=== PATIENT | female | born 1940 | race Caucasian/White ===

== ENCOUNTER 2016-10-25 18:08 | Inpatient (IN) | payer MEDICARE ==
[~2016-10-25] VITALS: Ht 172.7 cm; Wt 57.3 kg
[~2016-10-25 18:08] MED LIST: ABILIFY10 MG PO; ALENDRONATE SOD70 MG PO; ALOPHEN PILLS5 MG PO; BUSPAR10 MG PO; CALCIUM 600+D T1 TA1 PO; CARDIZEM 90 MG90 MG PO; COLACE100 MG PO; CYMBALTA60 MG PO; EFFEXOR100 MG PO; FERROUS SULFAT325 MG PO; FEXOFENADINE HC60 MG PO; FLORAJEN3 CAPS460 MG PO; GLUCOSAMINE & C1 CAP; GLUCOSAMINE & C1 CAP PO; HYDROCODONE-APA1 TAB PO; INVANZ 1 GM/NS 11 G1 IM; KLONOPIN0.5 MG PO; LANOXIN125 MCG PO; LANOXIN250 MCG PO; LISINOPRIL2.5 MG PO; LYRICA100 MG PO; MILK OF MAGNESI30 ML PO; MULTIPLE VITAMI1 TA1 PO; NITROQUICK0.4 MG SL; PROAIR HFA8.5 GM INH; VITAMIN D50000 UNIT PO; XANAX0.5 MG PO; XARELTO10 MG PO
[2016-10-25] MEDS ORDERED: DESERYL100 MG PO (18:54)
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
[2016-10-25 19:16] VITALS: BP 130/80; BMI 18.2
[2016-10-25 19:26] LABS: HEMOGLOBIN A1C 5.1 % (4.8-6.0)
[2016-10-25 19:28] LABS: CHOL - HDL RATIO 3.1 ratio (2.3-4.1); DIGOXIN 1.42 ng/mL (0.90-2.00); LDL-HDL RATIO 1.6 ratio (1.5-3.5); THYROID STIMULATING HORMONE 2.47 uIU/mL (0.36-3.74)
[2016-10-25 19:30] VITALS: BP 105/67
[2016-10-25 19:47] LABS: APPEARANCE CLEAR (CLEAR); BILIRUBIN NEGATIVE (NEGATIVE); COLOR YELLOW (YELLOW); GLUCOSE NEGATIVE (NEGATIVE); KETONE NEGATIVE (NEGATIVE); LEUKOCYTE ESTERASE NEGATIVE (NEGATIVE); NITRITE NEGATIVE (NEGATIVE); PROTEIN NEGATIVE (NEGATIVE); UROBILINOGEN NORMAL (NORMAL)
--- NOTE | 2016-10-25 20:56 | NUR ---
RECEIVED IN DAYROOM. MOVING ABOUT IN WHEELCHAIR. CONFUSED. NO SIGNS OF HALLUCINATIONS. CALM AND COOPERATIVE WITH CARE AND ASSESSMENT. REDIRECT AND REINFORCE NEEDED. CONTINUES TO MOVE ABOUT QUIETLY IN WHEELCHAIR. CONTINUE PLAN OF CARE.
[2016-10-26 08:08] VITALS: BP 128/91
--- NOTE | 2016-10-26 09:00 | NUR ---
B) Patient is very depressed today, her affect is flat, she is not speaking much, can answer some yes and no questions. Silva Pittman did try to help her eat breakfast, but she took one bite of eggs and spit it out. She says "There is nothing that she wants to eat" Patient has not shown any hallucinations at this time. She normally wears hearing aids, but she does not have them and has not requested them she did however request her glasses which she did not bring, we will let Yanna be aware. Patient can stand with staff assist, but she does not ambulate and she can self propel in a w/c. I) Provide prescribed meds, provide activities to involve patient in interacting with staff and peers. R) Patient is compliant with meds, remains confused and flat. P) Continue plan of care.
[2016-10-26 09:37] VITALS: Ht 172.7 cm; Wt 57.3 kg
--- NOTE | 2016-10-26 12:17 | NUR ---
Patient is paranoid today, making bizarre statements about DrGamaliel's with an S name (three of them take people out and do funny stuff) Patient is intrusive, she is blaming another male patient of lying to her and this patient is not speaking to her at all. Patient's POA came in to sign papers, but verbals were obtained yesterday. Did request that she bring her glasses as that is what patient has requested.
--- NOTE | 2016-10-26 13:31 | NUR ---
Patient was anxious, having paranoia and flight of ideas, expressing she was "very afraid". She was assured she was in a safe place and was given Ativan 0.5 mg and Haldol 2mg. At 1400 patient was relaxed and interacting positively with others.
--- NOTE | 2016-10-26 16:58 | NUR ---
Called patients family to ask them if they can please bring her two more outfits and her glasses, Petra said she will be able to in the am.
[2016-10-26 20:00] VITALS: BP 127/80
--- NOTE | 2016-10-27 01:38 | NUR ---
B) Recieved sitting in the day room, alert and oriented to self, demanding and impatient, I) Administered perscribed medications, redirected and oriented as needed R) Medication Compliant, intrusive and attention seeking, P) Continue plan of care.
--- NOTE | 2016-10-27 05:40 | NUR ---
ATIVAN 1 MG IM GIVEN IN RIGHT UPPER QUAD GLUTEAL FOR ANXIETY, ARGUMENTATIVE, AND VERY GRANDIOS STATEMENTS AT TIMES.
[2016-10-27 08:16] LABS: FOLATE (FOLIC ACID) - SERUM 18.1 ng/mL (>3.0)
--- NOTE | 2016-10-27 10:34 | NUR ---
B) Patient is flat to blunted in affect and depressed in mood, did smile when this nurse approached her, she is unsteady and she tries and does stand alone, but she needs prompts not to get up by herself. She is oriented to herself, but she has no clue where she is located or the time. I) Provide prescribed meds and redirect to appropriate behvior. R) Patient needs much redirection and prompts. P) Continue plan of care.
[2016-10-27 10:39] VITALS: BP 121/67
--- NOTE | 2016-10-27 15:07 | NUR ---
Patient is rambling on and on, she is talking about art and she is talking about a [employer] [facility].
[2016-10-27 19:33] VITALS: BP 128/72
--- NOTE | 2016-10-28 00:11 | NUR ---
B) Recieved sitting in the day room in a wheel chair, alert and oriented to self, thinks she is in a house, self intitled, wants to tell staff what to do, I) Administered perscribed medications, redirected as needed, oriented to being in a hospital, R) medication compliant, verbally abusive to staff at times, P) Continue plan of care, continue to monitor.
[2016-10-28 09:59] VITALS: BP 107/60
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
[2016-10-28 20:00] VITALS: BP 139/71
--- NOTE | 2016-10-29 00:09 | NUR ---
B) Recieved sitting in the day room in a wheel chair, alert and oriented to self, calm and cooperative with staff, I) Administered perscribed medications, redirected as needed, R) Medication compliant, no behavioral outburst this shift, P) Continue plan of care,
[2016-10-29 06:24] VITALS: BP 164/69
[2016-10-29 10:24] VITALS: BP 107/67
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
--- NOTE | 2016-10-29 18:18 | NUR ---
RECEIVED THIS AM SITTING IN WC AT NURSES STATION.ORIENTED TO SELF ONLY.CALM AND COOPERATIVE.COMPLIANT WITH STAFF AND MEDS.PROPELLS SELF IN WC.WILL CONTINUE WITH PLAN OF CARE,MONITOR FOR CHANGES AND SAFETY.
[2016-10-29 19:39] VITALS: BP 134/67
--- NOTE | 2016-10-29 20:43 | NUR ---
RECIEVED IN DAYROOM. SETTING IN WHEELCHAIR WITH STAFF AND PEERS AT HER SIDE. CALM AND COOPERATIVE WITH CARE AND ASSESSMENT. NO SIGNS OF HALLUCINATIONS. NO CRYING THIS EVENING. REDIRECT AND REORIENT. PM MEDS GIVEN ORDERED. RESTING IN BED EYES OPEN AT THIS TIME. CONTINUE PLAN OF CARE
[2016-10-30 05:37] VITALS: BP 133/75
[2016-10-30 08:22] LABS: VITAMIN D 25 HYDROXY 42.1 ng/mL (30.0-100.0)
--- NOTE | 2016-10-30 09:48 | NUR ---
Nutrition Follow Up: Chart reviewed. Pt is confused and sad per MD note. Diet: Regular; Ensure TID PO Intake: 24% (8 meal avg) Wt loss 3# since admit +BM 10/27/16 Meds: Megace No new labs Pt with poor po intake. Pt is not meeting est nutritional needs. Rec continue current diet, supplement regimen. Rec continue Megace. Will honor food preferences when able. RD following.
[2016-10-30 14:08] VITALS: BP 107/58
--- NOTE | 2016-10-30 15:09 | NUR ---
B.) Alert and oriented to name and place, has no insight to reason for hospitalization. I.) Administer prescribed medications and monitor compliance. Redirect and reorient as need, monitor for any hallucinations or delusions. Encourage group participation. R.) Compliant with medications, hallucination this am while waiting for breakfast,'" I hear my son's voice, did you hear him." has not been bursting out in tears today but has been talking out to unseen people. Safety maintained, chair alarm in place and functioning properly. P.) Continue plan of care.
[2016-10-30 20:35] VITALS: BP 133/76
--- NOTE | 2016-10-30 23:22 | NUR ---
RECEIVED IN DAYROOM. SETTING IN CHAIR WITH PEERS AT HER SIDE. CALN AND COOPERATIVE WITH CARE AND ASSESSMENT. NO SIGNS OF HALLUCINATIONS. REDIRECT AND REORIENT NEEDED. RESTING IN BED EYES OPEN AT THIS TIME. CONTINUE TO REDIRECT AND REORIENT. CONTINUE PLAN OF CARE
[2016-10-31 08:00] VITALS: BP 101/61
--- NOTE | 2016-10-31 12:09 | PN ---
PATIENT:BRANDO RODRIGUEZ MEDICAL RECORD: [id number] LOCATION:[facility] AggarwalSilke ADMISSION DATE: 10/25/16 PROGRESS NOTE DATE OF SERVICE: 10/30/2016 SUBJECTIVE: The patient's case was discussed with staff. She has no new complaint. OBJECTIVE: The patient denies intent to harm herself or others. She generally tolerates her medicines well. ASSESSMENT: No change in diagnoses. PLAN: Current medicines and therapies have been reviewed and will be maintained. Long-term prognosis is guarded. TRANSINT:[id number] Voice Confirmation ID: [id number] DOCUMENT ID: [id number] BIN DE LEÓN MD at 1209 CC: [id number] DICTATION DATE: 10/30/16 1446 MOLD FILLER AND DRAINER: 10/30/16 1459 ADM IN [place] [id number] [place] [address]
--- NOTE | 2016-10-31 12:10 | PN ---
PATIENT:BRANDO RODRIGUEZ MEDICAL RECORD: [id number] LOCATION:[facility]RET[facility] MenaGamalielSilke ADMISSION DATE: 10/25/16 PROGRESS NOTE DATE OF SERVICE: 10/29/2016 SUBJECTIVE: The patient's case was discussed with staff. She has no new complaint. OBJECTIVE: The patient has been quite confused and at times even delusional, saying things that are nonsensical about people are plotting against her and not liking her. Some of the things are persecutory, others are just flatly paranoid. She denies that she is wanting to hurt herself or others. She denies overt hallucinatory experiences. ASSESSMENT: No change in diagnoses. PLAN: The patient has been taking risperidone, but I am going to change her to a different antipsychotic because of the ongoing issues that she is having. I am also going to start her on Megace for its appetite stimulating properties. TRANSINT:[id number] Voice Confirmation ID: [id number] DOCUMENT ID: [id number] BIN DE LEÓN MD at 1210 CC: [id number] DICTATION DATE: 10/29/16 1416 YOUTH COORDINATOR: 10/29/16 1434 ADM IN [facility] [address] [place] [id number]
--- NOTE | 2016-10-31 13:23 | NUR ---
B.) Alert and oriented to name and place this am, states " wait a minute I know what day it is" and reads day and date off of newspaper. I.) Administer medications and monitor compliance, assess for any occurance of hallucinations or delusions. Monitor safety. R.) Compliant with medications. has not been hallucianting so far today, pleasant and cooperative with unit milieu. P.) Continue with plan of care.
[2016-10-31 20:22] VITALS: BP 97/64
--- NOTE | 2016-10-31 21:10 | NUR ---
RECEIVED IN W/C AT NURSES STATION. CALM AND COOPERATIVE WITH CARE. SHE IS CONFUSED. COMPLIANT WITH TAKING MEDS CRUSHED IN APPLESAUCE. ASSESSMENT COMPLETED PER FLOW SHEET. WILL CONTINUE POC AND MONITOR FOR SAFETY.
[2016-11-01 08:10] VITALS: BP 141/71
--- NOTE | 2016-11-01 12:12 | NUR ---
B) Patient is awake and alert, oriented to self, she knows she is in the hospital, b ut doesn't know where or the date. She has not been anxious or tearful today, she self propels in the w/c and she is more redirectable. I) Provide prescribed medications and redirect and reorientate as needed. R) Patient is compliant with meds and unit milieu. P) Continue plan of care.
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
--- NOTE | 2016-11-01 14:02 | PN ---
PATIENT:BRANDO RODRIGUEZ MEDICAL RECORD: [id number] LOCATION:[facility] AggrawalSilke ADMISSION DATE: 10/25/16 PROGRESS NOTE DATE OF SERVICE: 10/31/2016 SUBJECTIVE: The patient's case was discussed with staff. She has no new complaint. OBJECTIVE: The patient is in good behavioral control with limited insight about her condition. She tolerates her medicines well. ASSESSMENT: No change in diagnoses. PLAN: Current medicines and therapies have been reviewed and will be maintained. Long-term prognosis is guarded. I anticipate the patient can be transitioned out of the hospital soon if this level of improvement is maintained. TRANSINT:[id number] Voice Confirmation ID: [id number] DOCUMENT ID: [id number] BIN DE LEÓN MD at 1402 CC: [id number] DICTATION DATE: 10/31/16 1543 MARINE PIPE WELDER: 10/31/162023 ADM IN [facility] [address] [place] [address]
[2016-11-01 19:30] VITALS: BP 104/64
--- NOTE | 2016-11-02 00:39 | NUR ---
B) Recieved sitting in a una chair in the day rom, alert and oriented to self, calm an cooperative with staff, I) Administered perscribed medications, redirected as needed, oriented as needed, R) Medication compliant, resting now quietly in bed, P) Continue plan of care, continue to monitor.
[2016-11-02 08:11] VITALS: BP 107/74
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
[2016-11-02 19:30] VITALS: BP 113/58
--- NOTE | 2016-11-02 20:27 | NUR ---
B) Patient is awake and alert, she is oriented to self only. She is confused, but she is calm, not aggressive or hallucinating. She does not ambulate alone, but she can stand and pivot and transfer and take a couple steps with a gait belt and walker and staff. I) Provide prescribed meds. R) Patient is compliant with meds and she is ready to sleep. P) Continue plan of care.
[2016-11-03 09:46] VITALS: BP 117/57
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
--- NOTE | 2016-11-03 18:39 | PN ---
PATIENT:BRANDO RODRIGUEZ MEDICAL RECORD: [id number] LOCATION:[facility] Parmar ADMISSION DATE: 10/25/16 PROGRESS NOTE DATE OF SERVICE: 11/02/2016 SUBJECTIVE: No new complaint. OBJECTIVE: The patient remains dysphoric. She has episode of frequent tearfulness. She is cooperative, but remains confused much of the time. On exam, mood is somewhat dysphoric. Affect is constricted overall. Speech is rather terse. Content of thought is positive for depressive themes. The patient is not psychotic. Sensorium is unchanged. ASSESSMENT: No change in diagnosis. PLAN: 1. Maintain all current medications. 2. Continue supportive therapy. TRANSINT:[id number] Voice Confirmation ID: [id number] DOCUMENT ID: [id number] NISHA GUZMAN III, MD at 1839 CC: [id number] DICTATION DATE: 11/02/16 1222 VERSE WRITER: 11/02/162051 ADM IN [place] [id number] [place] [address]
[2016-11-03 20:00] VITALS: BP 141/73
--- NOTE | 2016-11-03 22:13 | NUR ---
B) Remains confused. Showered with assistance this evening. Edema to lower legs and feet is decreasing per staff who have been on duty past three days. Fingers and toes cool to touch. No delusional statements made, no signs of hallucinations, no conversation with peers, spoke very few words, affect blank. Told to elevate legs. I) Administer medications as ordered, redirect and reorient PRN. R) Took her medications crushed in applesauce, then told staff that next time she would like her pills whole with water. P) Continue to monitor per plan of care.
--- NOTE | 2016-11-04 03:56 | NUR ---
ATIVAN 0.5 MG PO GIVEN FOR ANXIETY AND PARANOIA.
[2016-11-04 07:41] VITALS: BP 114/67
--- NOTE | 2016-11-04 10:30 | NUR ---
PT IS ORIENTED TO PERSON AND PLACE. SHE HAS BUE BRUISING IN VARIOUS STAGES OF HEALING. MED COMPLIANT. PT REQUIRES FREQUENT REDIRECTION WITH NO EVIDENCE OF RETAINING. NO HALLUCINATINATION NOTED. PT IS EXPRESSING SOME PARANOID DELUSIONS. PT THINKS THAT SHE IS DIEING AND THAT CDC NEEDS CALLED DUE TO CONTAMINATION. ANXIETY NOTED. ENCOURAGED PT TO EXPRESS FEELINGS AND REDIRCTED NEEDED. FALL PRECAUTIONS MAINTAINED. WILL CONTINUE TO MONITOR AND CONTINUE PLAN OF CARE.
[2016-11-04 19:30] VITALS: BP 114/66
--- NOTE | 2016-11-04 19:31 | NUR ---
RECEIVED IN DAYROOM. SETTINGIN RECLINING CHAIR WITH PEERS AT HER SIDE. CALM AND COOPERATIVE WITH CARE AND ASSESSMENT.. NO SIGNS OF HALLUCIANTIONS. SMILING. ENCOURAGE TO EXPRESS NEEDS. CONTINUES TO REST QUIETLY IN RECLINER. WATCHIN TV AT TIMES. CONTINUE PLAN OF CARE
[2016-11-05 05:37] VITALS: BP 133/77
[2016-11-05 07:38] VITALS: BP 108/45
--- NOTE | 2016-11-05 13:16 | PN ---
PATIENT:BRANDO RODRIGUEZ MEDICAL RECORD: [id number] LOCATION:GRET[facility] Aggarwal112 ADMISSION DATE: 10/25/16 PROGRESS NOTE DATE OF SERVICE: 11/01/2016 SUBJECTIVE: The patient's case was discussed with staff. She has no new complaint. OBJECTIVE: The patient continues to be very disorganized, makes delusional statements and at times is quite tearful. ASSESSMENT: No change in diagnoses. PLAN: Current medicines have been reviewed and will be maintained. Long-term prognosis is guarded. The patient is taking an antidepressant, memory-enhancing medication and antipsychotic, and at this point, even though she is still having the symptoms that brought her to the hospital, I think they are a little bit better and given a few more days on this dose of medications, I think it will be helpful to her. Her long-term prognosis is guarded. TRANSINT:[id number] Voice Confirmation ID: [id number] DOCUMENT ID: [id number] BIN DE LEÓN MD at 1316 CC: [id number] DICTATION DATE: 11/01/16 1438 EDUCATIONAL ADMINISTRATOR: 11/01/16 1701 ADM IN [place] [id number] [place] [address]
--- NOTE | 2016-11-05 17:54 | NUR ---
Oriented to namen only, patient thinks she is at home and is delusional thinking people have been in and out all day taking things from here. Frequent reorientation and refocus to reality with no evidence of retaining. No aggresion or hallucinations noted. Med compliant. Redirect as need . Fall precautions in place. Continue plan of care and monitoring.
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
[2016-11-05 19:58] VITALS: BP 121/70
--- NOTE | 2016-11-06 09:30 | NUR ---
Nutrition Follow Up: Chart reviewed. Pt eating 59% meal avg on a regular diet. She is receiving Ensure with meals. +BM 11/03/16. Meds noted - including Megace. No new labs. Pt with greatly improved po intake. Rec continue current diet, supplement regimen. RD following.
[2016-11-06 10:07] VITALS: BP 134/71
--- NOTE | 2016-11-06 11:15 | NUR ---
Alert and oriented to name, no insight to why she is here, delusional at times thinking she is at home and people are taking things and then she starts to become tearful. No hallucinations observed, refocused to reality.med compliant Fall precautions in place. Continue plan of care
[2016-11-06 19:39] VITALS: BP 112/60
--- NOTE | 2016-11-06 20:41 | NUR ---
B) Patient is tearful and confused, she has no idea where she is located. She is oriented to self only. She is talking with social service technician and she can stand, but not ambulate, she is able to transfer. I) Provide prescribed meds. R) Patient is compliant with meds. P) Continue plan of care.
[2016-11-07 05:30] VITALS: BP 159/78
[2016-11-07 07:40] VITALS: BP 112/69
--- NOTE | 2016-11-07 14:23 | NUR ---
(B)PATIENT SITTING IN A CHAIR AT THE NURSES STATION. ORIENTED TO SELF AND HOSPITAL. POOR INSIGHT INTO THE REASON FOR HOSPITALIZATION RELATING "TO GET WELL. I DON'T KNOW WHAT. YEAH I KNOW MY FEET." PATIENT WORRIES ABOUT EVERYTHING. AFFECT BECOMES BRIGHTER WHEN INFORMED DAUGHTER IS FLYING IN SATURDAY TO SEE HER. TEARFUL AT TIMES. (I)ADMINISTER MEDS AND MONITOR COMPLIANCE. ENCOURAGE PATIENT TO PARTICIPATE IN GROUP ACTIVITIES TO DISTRACT FROM WORRYING ABOUT EVERYTHING. (R)MED COMPLIANT. CONTINUES TO HAVE TEARFUL EPISODES. APPROACHES STAFF CONFUSED AND WILL BE REORIENTED AND REINFORCED HER DAUGHTER IS COMING IN THIS WEEKEND. FORGETFUL. (P)CONTINUE POC AND MAINTAIN FALL PRECAUTIONS.
--- NOTE | 2016-11-07 17:36 | PN ---
PATIENT:BRANDO RODRIGUEZ MEDICAL RECORD: [id number] LOCATION:[facility] AggarwalSilke ADMISSION DATE: 10/25/16 PROGRESS NOTE DATE OF SERVICE: 11/06/2016 SUBJECTIVE: The patient's case was discussed with staff. She has no new complaint. OBJECTIVE: The patient is in good behavioral control with limited insight about her condition. She tolerates her medications reasonably well. ASSESSMENT: No change in diagnoses. PLAN: Current medicines and therapies have been reviewed and will be maintained. Long-term prognosis is guarded. TRANSINT:[id number] Voice Confirmation ID: [id number] DOCUMENT ID: [id number] BIN DE LEÓN MD at 1736 CC: [id number] DICTATION DATE: 11/06/16 1322 HITCHER: 11/06/16 1836 ADM IN [place] [id number] [place] [address]
--- NOTE | 2016-11-07 17:36 | PN ---
PATIENT:BRANDO RODRIGUEZ MEDICAL RECORD: [id number] LOCATION:[facility] ADMISSION DATE: 10/25/16 PROGRESS NOTE DATE OF SERVICE: 11/05/2016 SUBJECTIVE: The patient's case was discussed with staff. She has no new complaint. OBJECTIVE: The patient is in good behavioral control with limited insight about her condition. She does tolerate her medicines well. ASSESSMENT: No change in diagnoses. PLAN: Brief supportive and educational interventions were made. Alf prognosis is guarded. I am going to increase the dose of the Geodon secondary to her behavior yesterday where she was very paranoid and tearful. She had a delusion that everyone was infected and she wanted everyone to be covered with some sort of a sheet and then she was demanding that the [facility] [employer] be called. She does not have a history of obsessive-compulsive disorder. This was confused and delusional. TRANSINT:[id number] Voice Confirmation ID: [id number] DOCUMENT ID: [id number] BIN DE LEÓN MD at 1736 CC: [id number] DICTATION DATE: 11/05/16 1323 CONSTRUCTION ELECTRICIAN: 11/05/16 1543 ADM IN [facility] [address] [place] [place] [id number]
--- NOTE | 2016-11-07 20:27 | NUR ---
RECEIVED IN DAYROOM. SETTING IN REXCLINER WITH PEERS AT HER SIDE. SOCIALIZING AT TIMES. CALM AND COOPERATIVE WITH CARE AND ASSESSMENT. REDIRECT AND REORIENT NEEDED. CONTINUES TO REST QUIETLY IN CHAIR. CONTINUE PLAN OF CARE
[2016-11-08 08:03] VITALS: BP 108/66
[2016-11-08 08:05] VITALS: BP 130/90
--- NOTE | 2016-11-08 13:20 | PN ---
PATIENT:BRANDO RODRIGUEZ MEDICAL RECORD: [id number] LOCATION:[facility]wal[facility] ADMISSION DATE: 10/25/16 PROGRESS NOTE DATE OF SERVICE: 11/07/2016 SUBJECTIVE: The patient's case was discussed with staff. She has no new complaint. OBJECTIVE: The patient is in good behavioral control with limited insight about her condition. She does tolerate her medicines well. ASSESSMENT: No change in diagnoses. PLAN: Current medicines and therapies have been reviewed and will be maintained. Long-term prognosis is guarded. TRANSINT:[id number] Voice Confirmation ID: [id number] DOCUMENT ID: [id number] BIN DE LEÓN MD at 1320 CC: [id number] DICTATION DATE: 11/07/16 174 GEAR SHAPER SET UP OPERATOR: 11/07/16 1907 ADM IN [facility] [address] [place] [address]
--- NOTE | 2016-11-08 13:53 | NUR ---
(B)PATIENT SITTING IN A CHAIR AT THE NURSE'S STATION. ORIENTED TO SELF AND HOSPITAL. POOR INSIGHT INTO THE REASON FOR HOSPITALIZATION. FREQUENT TEARFUL EPISODES TODAY. RELATING "I FEEL WORTHLESS. WORKED SO HARD MY WHOLE LIFE AND NOW NOBODY CARES" ALTHOUGH DAUGHTER IS EXPECTED TO COME SATURDAY AND TAKE PATIENT WITH HER TO [place]. ATTENTION SEEKING AND WILL MOTION TO YOU TO COME TO HER ANYTIME YOU LOOK IN HER DIRECTION. (I)ADMINISTER MEDS AND MONITOR COMPLIANCE. REORIENT NEEDED. (R)MED COMPLIANT. POOR REORIENTATION DUE TO IMPAIRED ABILITY TO RETAIN INFORMATION. (P)CONTINUE POC AND MAINTAIN FALL PRECAUTIONS.
[2016-11-08 19:30] VITALS: BP 112/74
--- NOTE | 2016-11-09 00:30 | NUR ---
B) Smiling with bright affect. Rolled her wheelchair up to nurse and asked for her HS medications to be given whole in applesauce, which was done. Socializing with select peers and staff, verbalizing about her discharge plans. I) Administer medications as ordered, redirect and reorient PRN. R) Oriented to person, place and time but somewhat to situation. Sociable and pleasant. Compliant with medications. P) Continue to monitor per plan of care.
--- NOTE | 2016-11-09 06:03 | NUR ---
Cooperative with BP check before taking Cardizem. Asked staff to call her on the telephone next time before coming over because coming unannounced is startling and if she had a gun she would have shot at travel writer.
[2016-11-09 06:28] VITALS: BP 150/87
[2016-11-09 08:12] VITALS: BP 124/81
--- NOTE | 2016-11-09 11:40 | NUR ---
B.) Alert and oriented to name and place, smiling stating " in two more days I go home with my daughter." I shouldnt be crying anymore, amador amador." I.) Administer medciations and monitor compliance, redirect and reorient as need. Monitor safety. R.) Compliant with medications, social and joking with staff and peers today," I'm so glad I'm getting my sense of humor back." appropriate communication and response to others with no hallucinations or delusions. Safety maintained. P.) Continue with plan of care.
[2016-11-09] MEDS ORDERED: MEGACE40 MG PO (12:18)
[2016-11-09] MEDS ORDERED: ARICEPT5 MG PO (12:19)
[2016-11-09] MEDS ORDERED: PENTOXIFYLLINE400 MG PO (12:19)
[2016-11-09] MEDS ORDERED: GEODON20 MG PO (12:20)
[2016-11-09] MEDS ORDERED: EFFEXOR37.5 MG PO (12:20)
[2016-11-09] MEDS ORDERED: FLORAJEN3 CAPS460 MG PO (12:20)
[2016-11-09] MEDS ORDERED: KLONOPIN0.5 MG PO (12:20)
[2016-11-09 19:24] VITALS: BP 117/73
--- NOTE | 2016-11-09 22:35 | NUR ---
B) Recieved sitting in the day room, alert and oriented to self and hospital, calm and tearful due to getting to go home on Saturday with her daughter, I) Administered perscribed medications, redirected as needed, allowed to express her feelings, R) Medication compliant, scared that she has done something wrong, P) Continue plan of care, continue to monitor.
[2016-11-10 07:54] VITALS: BP 111/44
--- NOTE | 2016-11-10 10:15 | NUR ---
B) Patient is awake and alert, she is in a good mood today, happy about her d/c tomorrow, but can get negative if not redirected to a positive thought. Patient can stand with assist and take steps, but very unsteady. She is oriented to self. I) Provide prescribed meds and redirect as needed. R) Patient is compliant with medications and interacts in groups. P) Continue plan of care.
--- NOTE | 2016-11-10 12:54 | PN ---
PATIENT:BRANDO RODRIGUEZ MEDICAL RECORD: [id number] LOCATION:[facility] ADMISSION DATE: 10/25/16 PROGRESS NOTE DATE OF SERVICE: 11/09/2016 SUBJECTIVE: The patient's case was discussed with staff. She has no new complaint. She is very impaired cognitively, but much calmer with much less anxiety and is not showing any delusions. ASSESSMENT: No change in diagnoses. PLAN: I am pleased with the progress the patient has made, what I am not sure about is if it is going to be long lasting. Her daughter is coming from [place] on Saturday and plans to take her back to [place] for placement and treatment. The details of this have been worked out as best they can on our end with her daughter in [place]. Assuming that there is no significant deterioration in the patient's behavior between now and Saturday, I do anticipate allowing her to go home with her daughter. Her long-term prognosis is guarded and will be entirely contingent upon how she follows through with outpatient treatment recommendations. TRANSINT:[id number] Voice Confirmation ID: [id number] DOCUMENT ID: [id number] BIN DE LEÓN MD at 1254 CC: [id number] DICTATION DATE: 11/09/16 1218 GALLEY WORKER: 11/09/16 1725 ADM IN [place] [address] [place] [address]
--- NOTE | 2016-11-10 12:55 | PN ---
PATIENT:BRANDO RODRIGUEZ MEDICAL RECORD: [id number] LOCATION:[facility]wal112 ADMISSION DATE: 10/25/16 PROGRESS NOTE DATE OF SERVICE: 11/08/2016 SUBJECTIVE: The patient's case was discussed with staff. She has no new complaint. OBJECTIVE: The patient is in good behavioral control, but severely impaired cognitively. She is less labile than she has been in the past couple of days and I am encouraged by this. PLAN: Right now, the treatment plan involves her sister coming here on Saturday and taking her back to [place]. Followup will be arranged out of state. TRANSINT:[id number] Voice Confirmation ID: [id number] DOCUMENT ID: [id number] BIN DE LEÓN MD at 1255 CC: [id number] DICTATION DATE: 11/08/16 1327 CENTRIFUGAL SUPERVISOR: 11/08/16 1508 ADM IN [place] [id number] [place] [id number]
--- NOTE | 2016-11-10 17:56 | NUR ---
Patient needs redirection when she begins talking about her friend stealing from her.
[2016-11-10 19:30] VITALS: BP 131/66
--- NOTE | 2016-11-11 02:22 | NUR ---
B) Recieved sitting in the day room, alert and oriented to self and hospital, knows she is going to [place] with her daughter on Saturday, calm and tearful/happy I) Administered perscribed medications crushed in apple sauce, R) Medication compliant, said that she would miss us, P) Continue plan of care.
[2016-11-11 08:38] VITALS: BP 117/66
--- NOTE | 2016-11-11 09:38 | NUR ---
PT IS ORIENTED TO PERSON, PLACE. REDIRECTED NEEDED. FALL PRECAUTIONS MAINTAINED. NO HALLUCINATIONS NOTED. PT IS WORRIED ABOUT GOING TO LEAVE WITH DAUGHTER, BUT SHE STATED," IT WILL BE GOOD". ENCOURAGED PT TO EXPRESS FEELINGS TO FAMILY FOR SUPPORT WHEN DISCHARGED. BELONGINGS PACKED AND DISCHARGE PAPERWORK FAXED TO [facility]PROP[facility]ATE [facility]ACES. WILL CONTINUE TO MONITOR AND CONTINUE WITH PLAN OF CARE.
[2016-11-11 19:30] VITALS: BP 134/73
--- NOTE | 2016-11-11 19:48 | NUR ---
RECEIVED IN DAYROO. SETTING IN WHEELCHAIR WITH PEER BY HIS SIDE.. SOCIALIZING WITH THAT PEER. NO SIGNS OF HALLUCINATIONS. CALM AND COOPERATIVE WITH CARE AND ASSESSMENT. ENCOURAGE TO EXPRESS NEEDS. CONTINUES TO MOVE ABOUT IN WHEELCHAIR
--- NOTE | 2016-11-11 22:22 | NUR ---
CRYING AND PARANOIA AT MED PASS. DID NOT WANT TO TAKE PM MEDICATIONS. REDIRECTED AND REORIENTED. ENCOURAGE TO TAKE MEDS. TOOK MEDICATIONS AFTER MUCH REDIRECTION AND ENCOURAGEMENT.
[2016-11-12 11:20] VITALS: BP 112/72
--- NOTE | 2016-11-12 15:24 | NUR ---
binding bench worker Adelfo spoke with patient daughter, she will be here tomorrow to pick patient up at 0900, she has already made medical doctor follow up arrangements with MD in [place]. Discharge medication prescriptions called to [facility] pharmacy on [address] spoke with pharmacist Gwendolyn, medications will be ready today.
--- NOTE | 2016-11-12 17:28 | NUR ---
Recieved this am alert and oriented to name and place, waiting for her daughter arrival so she can discharge home, expresses feeling. Calm and cooperative with care. Med compliant. No hallucinations or delusion. Fall safety maintained. Complains of right foot hurting, assessed per MD to be warm and red. Po antibiotic started and advil was ordered. Paper script written for antibiotic at discharge. Plan for discharge tomorrow.
--- NOTE | 2016-11-12 19:39 | NUR ---
RECEIVED IN DAYROOM. SETTING IN WHEELCHAIR WITH PEERS AT HER SIDE. SOCIALIZING AT TIMES. CALMA ND COOPERATIVE WITH CARE AND ASSESSMENT. NO SIGNS OF HALLUCINATIONS. ENCOURAGE TO EXPRESS NEEDS. REMAINS SETTING IN WHEELCHAIR CALM AND COOPERATIVE. CONTINUE PLAN OF CARE
[2016-11-12 20:37] VITALS: BP 137/83
--- NOTE | 2016-11-13 09:07 | NUR ---
Nutrition Follow Up: Chart reviewed. Pt scheduled to d/c today. Pt is eating 63% meal avg on a Regular diet; pt receiving Ensure with meals. +BM 11/12/16. Meds noted including Megace. RD following.
--- NOTE | 2016-11-13 10:28 | NUR ---
B) Received pt in dining room for b'fast, pleasant mood, appetite good, no aggression, no hallucinations noted, answers simple questions appropriately. I) Admin medications as ordered, provide group therapy as directed. R) No s/s adverse reaction to meds. Participates in group therapy. P) Cont plan of care until discharge home with daughter.
--- NOTE | 2016-11-13 13:35 | NUR ---
ALL BELONGINGS SENT WITH PT AND MEDICATIONS CALLED IN TO PHARMACY. REVIEWED DISCHARGE PAPERWORK WITH PT'S DAUGHTER AND CAREGIVER. VERBALIZED UNDERSTANDING.
--- NOTE | 2016-11-13 13:48 | NUR ---
RECEIVED THIS AM SITTING IN WHEELCHAIR IN HALLWAY AT NURSES STATION.ORIENTED TO PERSON AND PLACE.REORIENTED TO TIME WITH QUESTIONABLE RESULTS.EXCITED ABOUT GOING HOME WITH DAUGHTER TODAY.COMPLIANT WITH MEDS.COOPERATIVE WITH STAFF AND PEERS.MEDS TAKEN WITHOUT DIFFICULTY.
[2016-11-13 14:08] VITALS: BP 109/59
--- NOTE | 2016-11-13 14:57 | PN ---
PATIENT:BRANDO RODRIGUEZ MEDICAL RECORD: [id number] LOCATION:[facility]wal112 ADMISSION DATE: 10/25/16 PROGRESS NOTE DATE OF SERVICE: 11/12/2016 Psychiatric Progress Note SUBJECTIVE: The patient's case was discussed with staff. She has no new complaint. OBJECTIVE: The patient denies intent to harm herself or others. She tolerates her medicines well. She is quite impaired cognitively, but not representing an acute danger. ASSESSMENT: No change in diagnoses. PLAN: The patient's daughter was supposed to take Levonda home yesterday. I learned today that the patient's daughter was delayed because of flight issues. The patient is going to be discharged with her daughter today. This is what the patient wants and what the daughter wants. They are going to go back to [place]. Followup will be coordinated in [place] when the daughter gets here. TRANSINT:[id number] Voice Confirmation ID: [id number] DOCUMENT ID: [id number] BIN DE LEÓN MD at 1457 CC: [id number] DICTATION DATE: 11/12/16 1330 LINDERMAN MACHINE OPERATOR: 11/12/16 1431 ADM IN [facility] [address] [place] [address]
--- NOTE | 2016-11-14 12:46 | PN ---
PATIENT:BRANDO RODRIGUEZ MEDICAL RECORD: [id number] LOCATION:[facility] AggarwalSilke ADMISSION DATE: 10/25/16 PROGRESS NOTE DATE OF SERVICE: 11/13/2016 SUBJECTIVE: The patient's case was discussed with staff. She has no new complaint. OBJECTIVE: The patient is calm and cooperative. She ate about half of what was presented to her yesterday. She also slept 7-1/2 hours. She has not been aggressive, but she is still very impaired cognitively. She is disappointed that her daughter did not get here yesterday, but she is excited about leaving with her today. ASSESSMENT: No change in diagnoses. PLAN: The patient wants to go back to [place] with her daughter. She will have followup arrangements made with both primary care and mental health there. Our social economist has helped in this arrangement as best she can given the obstacle of time and distance. TRANSINT:[id number] Voice Confirmation ID: [id number] DOCUMENT ID: [id number] BIN DE LEÓN MD at 1246 CC: [id number] DICTATION DATE: 11/13/16 1510 GAS WORKER: 11/13/16 1544 DIS IN 11/13/16 [facility] [address] [place] [address]
--- NOTE | 2016-11-21 16:40 | DS ---
PATIENT:BRANDO RODRIGUEZ :40 MEDICAL RECORD: [id number] DISCHARGE SUMMARY ADMISSION DATE: 10/25/16 DISCHARGE DATE: 11/13/16 IDENTIFYING DATA: The patient is 76 years old and she is admitted to the hospital on a voluntary basis secondary to hallucinations and delusions. She had been hospitalized here in August of last year and at that time was having ongoing paranoid psychotic symptoms. She was successfully treated with medications, but for unknown reasons, the medications were stopped. She is now delusional, paranoid and tearful. She insists that people do not like her and that they are talking about her. She is very distressed by this. HOSPITAL COURSE: The patient was admitted to the hospital and fully evaluated from both a medical, psychological, and social standpoint. She was treated with antipsychotic and mood stabilizing medications and did show significant improvement. She was subsequently transitioned out of the hospital and back to a [facility]. DISCHARGE DIAGNOSES: AXIS I: 1. Senile dementia of the Alzheimer's type with behavioral disturbances. 2. Major depression, moderate severity. 3. Posttraumatic stress disorder. 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 AXIS III: Hypertension, chronic obstructive pulmonary disease, congestive heart failure, anemia and recent orthopedic surgery. AXIS IV: Moderate stressors. AXIS V: Global assessment of functioning is 35. PLAN: At the time of discharge, the patient was in good behavioral control with limited insight about her condition. She tolerates her medicines well. She has poor insight about her situation, but was not acutely dangerous. Her long-term prognosis is guarded. She will be followed on an outpatient basis by her primary care and [facility] physician. TRANSINT:[id number] Voice Confirmation ID: [id number] DOCUMENT ID: [id number] BIN DE LEÓN MD at 1640 CC: [id number] DICTATION DATE: 11/20/16 1410 GRINDING ROOM INSPECTOR: 11/21/16 0717 DIS IN 11/13/16 [place] [id number] [place] [id number]
== END 2016-11-13 09:10 | disposition home or self-care (01) | DRG 57 ==
LOC: D.PSYCH 18:08
PROVIDERS: ADMIT Psychiatry & Neurology Psychiatry
DX: G30.1 Alzheimer's disease with late onset (principal); F02.81 Dementia in other diseases classified elsewhere, unspecified severity, with behavioral disturbance; F32.1 Major depressive disorder, single episode, moderate; N39.0 Urinary tract infection, site not specified; L03.115 Cellulitis of right lower limb; F43.10 Post-traumatic stress disorder, unspecified; J44.9 Chronic obstructive pulmonary disease, unspecified; I11.0 Hypertensive heart disease with heart failure; I50.9 Heart failure, unspecified; D64.9 Anemia, unspecified; I48.91 Unspecified atrial fibrillation; R26.9 Unspecified abnormalities of gait and mobility; G47.00 Insomnia, unspecified; B96.20 Unspecified Escherichia coli [E. coli] as the cause of diseases classified elsewhere; E34.9 Endocrine disorder, unspecified; I73.9 Peripheral vascular disease, unspecified; L97.529 Non-pressure chronic ulcer of other part of left foot with unspecified severity